=== PATIENT | male | born 1955 | race Caucasian/White ===

== ENCOUNTER 2022-02-16 19:28 | Inpatient (IN) | payer MEDICARE, OTHER ==
[~2022-02-16] VITALS: Ht 172.7 cm; Wt 137.9 kg
[2022-02-16 19:51] LABS: BASOPHILS ABSOLUTE AUTO 0.05 K/mm3 (0.00-0.23); BASOPHILS PERCENT AUTO 0 % (0-2); EOSINOPHILS PERCENT AUTO 2 % (0-6); Hematocrit 49.3 % (37.0-53.0); Hemoglobin 16.2 g/dL (13.5-17.5); IMMATURE GRAN ABSOLUTE AUTO 0.05 K/mm3 (0.00-0.10); IMMATURE GRAN PERCENT AUTO 0 % (0-1); LYMPHOCYTES ABSOLUTE AUTO 1.85 K/mm3 (0.84-5.20); LYMPHOCYTES PERCENT AUTO 14 % (21-46); MONOCYTES ABSOLUTE AUTO 1.14 K/mm3 (0.16-1.47); MONOCYTES PERCENT AUTO 9 % (4-13); Mean Corpuscular HGB 28.4 pg (26.0-34.0); Mean Corpuscular HGB Conc 32.9 g/dL (31.5-36.5); Mean Corpuscular Volume 87 fL (80-100); Mean Platelet Volume 11.2 fL (9.1-12.4); NEUTROPHILS ABSOLUTE AUTO 9.66 K/mm3 (1.96-9.15); NEUTROPHILS PERCENT AUTO 75 % (41-73); Platelet Count 245 K/mm3 (150-400); RDW Coefficient Variation 13.8 % (11.7-14.2); RDW Standard Deviation 43.5 fL (35.1-46.3); White Blood Cell Count 12.95 K/mm3 (4.00-11.30)
[2022-02-16 20:20] LABS: Creatinine (POC) 1.6 mg/dL (0.8-1.3)
[2022-02-16 20:20] LABS: Albumin, Blood 3.4 g/dL (3.4-5.0); Albumin/Globulin Ratio 0.9 (0.8-1.8); Bilirubin, Total 0.3 mg/dL (0.1-1.0); Bun/Creatinine Ratio 20.8 (12.0-20.0); Calcium, Blood 8.9 mg/dL (8.5-10.1); Creatinine, Blood 1.59 mg/dL (0.60-1.20); Globulin, Blood 3.6 g/dL (2.2-4.0); Potassium, Blood 4.1 mmol/L (3.5-5.5)
[2022-02-17 00:47] LABS: Anti-Xa UFH, PHA Monitoring <0.10 IU/mL; International Normalized Ratio 1.08; Prothrombin Time Results 11.3 Sec (9.7-11.5)
[2022-02-17 04:25] LABS: Hematocrit 47.8 % (37.0-53.0); Hemoglobin 15.4 g/dL (13.5-17.5); Mean Corpuscular HGB 28.5 pg (26.0-34.0); Mean Corpuscular HGB Conc 32.2 g/dL (31.5-36.5); Mean Corpuscular Volume 88 fL (80-100); Platelet Count 221 K/mm3 (150-400); RDW Coefficient Variation 13.9 % (11.7-14.2); RDW Standard Deviation 44.6 fL (35.1-46.3); Red Blood Cell Count 5.41 M/mm3 (4.30-5.90); White Blood Cell Count 11.13 K/mm3 (4.00-11.30)
[2022-02-17 05:03] LABS: Bun/Creatinine Ratio 20.5 (12.0-20.0); Calcium, Blood 8.5 mg/dL (8.5-10.1); Creatinine, Blood 1.51 mg/dL (0.60-1.20); Potassium, Blood 3.7 mmol/L (3.5-5.5); Thyroid Stimulating Hormone 2.25 uIU/mL (0.360-4.800)
--- NOTE | 2022-02-17 07:24 | NUR ---
US TECH AT BEDSIDE FOR RENAL W/ BLADDER
--- NOTE | 2022-02-17 07:36 | NUR ---
ASSUMED CARE: PT IS RESTING IN BED AT TIEM OF BEDSIDE REPORT, PT'S IN RECLINER FROM PREVIOUS NIGHT'S STAY. PT IS SATTING AT 97% O2 AT ROOM AIR, NORMAL SINUS RHYTHM W/ FREQUENT PVC'S AND RATE IN 80'S PER MONITOR, HEPARIN GTT RUNNING AT 15U/KG/HR. PT IS ABLE TP VERBALIZE NEEDS AND CALL LIGHT IS WITHIN REACH, NO ACUTE NEEDS/DISTRESS AT THIS TIME.
--- NOTE | 2022-02-17 08:45 | NUR ---
reviewed [employer]'s head to toe assessment and agree
--- NOTE | 2022-02-17 13:52 | NUR ---
PT CALLED STAFF TO BEDSIDE BECAUSE HE HAD A "SPLITTING" HEADACHE. CHECKED BP WITH RESULT 188/110. DISCUSSED OPTIONS WITH PRODUCT SAFETY ASSOCIATE AND REMOVED NITRO PASTE DUE TO NEEDING IT OFF FOR 24 HOURS FOR SECOND PORTION OF STRESS TEST ANYWAY. MEDICATED WITH IV LABETOLOL. PT USING HOT COMPRESS TO HEAD WELL. PT STATES HE IS ALREADY FEELING RELIEF.
--- NOTE | 2022-02-17 14:00 | NUR ---
NUCLEAR MEDICINE IN ROOM TO ADMINISTER INJECTION, PT CLEARED BY IMAGING TO EAT BEFORE SCAN, TRAY PROVIDED.
[2022-02-17 14:20] LABS: Anion Gap 7 mmol/L (6-16); Blood Urea Nitrogen 26 mg/dL (8-24); Bun/Creatinine Ratio 21.5 (12.0-20.0); CO2, Blood 25 mmol/L (21-32); Calcium, Blood 8.2 mg/dL (8.5-10.1); Chloride, Blood 107 mmol/L (98-108); Creatinine, Blood 1.21 mg/dL (0.60-1.20); Glomerular Filtration Rate >60 (60-); Glucose, Blood 104 mg/dL (70-99); Potassium, Blood 3.8 mmol/L (3.5-5.5); Sodium, Blood 139 mmol/L (136-145)
--- NOTE | 2022-02-17 15:09 | NUR ---
Patient is lying in bed and alert. Pt's spouse, Henny, is bedside. They tell me about the medical issues and the plan moving forward. They, then, talk about their family and about their strong Hinduism saman. They list their concerns and their trust in God at the same time. I reinforce their helpful attitudes and gratitude, and provide therapeutic listening, pastoral counselor nurses' association and prayer. They respond well and show signs of being encouraged in their saman. I will continue to remain available to patient and family.
--- NOTE | 2022-02-17 15:10 | NUR ---
PT TAKEN BY TRANSPORTER VIA WHEELCHAIR W/ IV POLE AND GTTS RUNNING TO IMAGING FOR NUCLEAR MEDICINE SCAN
--- NOTE | 2022-02-17 15:26 | NUR ---
PT BACK IN ROOM FROM IMAGING
--- NOTE | 2022-02-17 17:23 | NUR ---
SHIFT SUMMARY: PT IS A&OX4 W/ AT BEDSIDE. PT HAS BEEN PLEASANT AND COOPERATIVE W/ CARE THROUGHOUT SHIFT. PT'S BP'S REMAIN IN 160'S/110'S, O2 SAT 97% AT ROOM AIR, AND TELE MONITOR REPORTS NSR W/ FREQUENT PVC'S AT A RATE OF 70'S . PT HAS HAD US RENAL AT BEDSIDE AND NUCLEAR STRESS TEST TODAY, BOTH WERE TOLERATED WELL. PT IS ABLE TO AMBULATE W/ SBA. PT ONLY REPORTED A SEVERE HEADACHE AND WAS RESOLVED W/ DC OF NITRO PATCH AND PRN BP MED PER MAR BY NAVNEET Etienne. PT IS ALLOWED TO EAT TONIGHT PER NUCLEAR MEDICINE, BUT NO CAFFEINE AFTER 1999 TONIGHT FOR SECOND IMAGE STUDY TO BE PERFORMED TOMORROW. NO ACUTE NEEDS/DISTRESS AT THIS TIME.
--- NOTE | 2022-02-18 00:03 | NUR ---
pt bp elevated pt had elevated bp after giving prn labatolol. Call placed to MD Dalton. MD Dalton with orders for po norvasc, prn hydralazine, and increased labatolol dose, see emar. Medications given which resulted in continuing htn. Call placed to MD Lee. MD Lee with orders for increased hydralazine and labatolol along with morning oral medications, see emar. While orders were being put in, pt's bp resulted in 260/145. Call placed again to MD Lee, with orders for nitro paste. Applied per emar, awaiting bp results.
--- NOTE | 2022-02-18 05:03 | NUR ---
SHIFT SUMMARY PATIENT IS A&O X4. PATIENT IS INDEPENDENT WITH ADLS BUT REQUIRES ASSISTANCE WITH LINES. PATIENT DENIES CHEST PAIN. AFEBRILE. SBP 160-220S DURING SHIFT. MEDICATED PER EMAR FOR HTN. CURRENTLY BACK TO 160S SYSTOLIC. SR ON TELE WITH FREQUENT PVCS, HR IN THE 80S. PATIENT ON RA WITH O2 SATS >94%. HEPARIN GTT INCREASED TO 21 UNITS/KG/HR 40.7 MLS/HR INFUSING INTO THE RAC IV LINE. PATIENT HAS STRESS TEST SCHEDULED FOR THIS AM AND HAS HAD NO CAFFEINE DURING THIS SHIFT. PATIENT UNDERSTANDS HOW TO CALL STAFF FOR ASSISTANCE. CALL LIGHT IN REACH AND BED IN LOWEST POSITION. WILL CONTINUE TO MONITOR.
--- NOTE | 2022-02-18 05:24 | NUR ---
SHIFT SUMMARY PATIENT IS ALERT AND ORIENTED TO SELF/FAMILY/SITUATION/LOCATION BUT FREQUENTLY BECOMES CONFUSED AND FORGETS LIMITATIONS/CARE NEEDS AND ASKS TO GET OUT OF BED OR TO EAT/DRINK. PATIENT IS ABLE TO BE REDIRECTED AND IS CALM AND COOPERATIVE WITH CARE. AFEBRILE. PATIENT IS ON AIRVO 55L 38% O2, WITH SATS >92%. DESATS QUICKLY TO THE 80S WHEN LAYING FLAT OR IF O2 IS REMOVED. SBP 110-120S. AFIB ON TELE WITH HR IN THE 100S. RR 22-24. GENERAL DYSPNEA NOTED. YOSHI PICC LINE EXTERNAL LENGTH AT 15CM. TPN AND CARDIZEM @ 10 INFUSING INTO YOSHI PICC LINE. CLINT POWERGLIDE DRAWS AND FLUSHES WELL. DRESSINGS ON RT ARM AND COCCYX C/D/I. Q2HR TURNS AND ORAL CARE DONE. PATIENT TOLERATED WELL. MOUTH CONTINUES TO BLEED EASILY WITH ORAL CARE DUE TO SCABS/SORES. BUE EDEMATOUS AND WEEPING; CHANGED PADS UNDER ARMS 2X DURING SHIFT. DOSHI CATHETER IS INTACT AND DRAINING WELL TO GRAVITY. URINE IS NOTICIBLY DARKER AT THE END OF THE SHIFT. CALL LIGHT WITHIN REACH. HOB ELEVATED. BED IN LOWEST POSITION. FREQUENT CHECKS FOR SAFETY. WILL CONTINUE TO MONITOR.
[2022-02-18 05:51] LABS: Cholesterol 125 mg/dL (50-200); HDL Cholesterol 31 mg/dL (>39); LDL/HDL RATIO 2.4; Low Density Lipoprotein Chol 75 mg/dL (0-110); Triglycerides 95 mg/dL (30-160); Very Low Density Lipoprot Chol 19 mg/dL (6-32)
--- NOTE | 2022-02-18 07:38 | NUR ---
ASSUMED CARE: PT RESTING IN BED AT TIME OF BEDSIDE REPORT, IN RECLINER. PT SATTING AT 95% AT ROOM AIR, NSR W/ FREQUENT PVC'S PER MONITOR. HEPARIN GTT RUNNING AT 21MCG/KG/MIN PT STATES HE HAS A SLIGHT HEADACHE, BUT NO OTHER ACUTE NEEDS/DISTRESS AT THIS TIME. CALL LIGHT WITHIN REACH.
--- NOTE | 2022-02-18 10:12 | NUR ---
REVIEWED REGISTERED CLIENT ASSOCIATE'S HEAD TO TOE ASSESSMENT AND AGREE
--- NOTE | 2022-02-18 10:25 | NUR ---
CERTIFIED SCRUM MASTER AT BEDSIDE
--- NOTE | 2022-02-18 13:26 | NUR ---
Patient is lying in bed and alert. Pt's spouse, Henny is bedside. Pt is experiencing high blood pressure while we talk but engages well in the conversation and drives much of the conversation. 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 They also talk about the stress that this kind of ministry brings and how this may contribute to his health issues. We talk about personal issues and I provide pastoral certified alcohol counselor, companionship and prayer. Pt and Henny respond well and show signs of being encouraged in their saman. I will continue to remain available to patient and family.
--- NOTE | 2022-02-18 15:23 | NUR ---
[facility] CENTER AT BEDSIDE TO PERFORM STRESS TEST
--- NOTE | 2022-02-18 17:48 | NUR ---
SHIFT SUMMARY: PT IS A&OX4 AND CALLS APPROPRIATELY FOR NEEDS. PT HAS HAD AT BEDSIDE THROUGHOUT SHIFT. PT HAS SUSTAINED NSR W/ FREQUENT PVC'S, O2 >95% ON ROOM AIR, AND SBP OF 160'S. PT REQUIRED PRN DOSE OF LABETOLOL FOR SBP IN 190'S W/ APPROPRIATE RESPONSE AND DECREASE IN SBP BACK DOWN TO 150'S. STRESS TEST W/ NUC MED COMPLETED. HEP GTT RUNNING AT 21U/KG/HR. NO ACUTE NEEDS/DISTRESS AT THIS TIME.
[2022-02-19 03:31] LABS: Hemoglobin 14.5 g/dL (13.5-17.5); Mean Platelet Volume 11.3 fL (9.1-12.4); Platelet Count 203 K/mm3 (150-400)
--- NOTE | 2022-02-19 05:55 | NUR ---
SHIFT SUMMARY PT ALERT AND ORIENTED X4. HIGH BP TO START SHIFT, SYSTOLIC 170'S. RELIEVED WITH PRN LABETALOL, STABLE SINCE AT 140'S/70'S. ON RA SATS OVER 94%. AFEBRILE. SR W/ PVCS 70'S. INDEPENDENT FOR ADLS. CPAP ON AT NIGHT. HEP GTT INFUSING. IN BED SLEEPING WITH CALL ALARM AT SIDE, WILL CONTINUE TO MONITOR UNTIL REPORT GIVEN TO DAYSHIFT RN
--- NOTE | 2022-02-19 07:22 | NUR ---
ASSUMED CARE OF PATIENT AT 0700. PATIENT A&O X4. PATIENT WAS SITTING UP IN BED. DENIES CP OR CHEST DISCOMFORT. PATIENT BP 166/98, HR 74, RR 20 BREATH/MIN., O2 95% ON RA AND NO FEVER. MORNING SCHEDULE BP MEDS GIVEN. PATIENT REPORTED HE WAS GIVEN OF IV LABETALOL LAST NIGHT AND HE THINKS THAT WAS EFFECTIVE THAT BROUGHT HIS BP DOWN TO 140S/70S. PATIENT SPOUSE AT BEDSIDE. CALL LIGHT IN REACH, BED IN LOW POSITION. WILL CONTINUE TO MONITOR PATIENT THROUGHOUT SHIFT.
--- NOTE | 2022-02-19 08:00 | NUR ---
The patient and his confirm that he DOES NOT HAVE A SULFA ALLERGY.
--- NOTE | 2022-02-19 09:26 | NUR ---
THIS SN RECHECKED PATIENT VITALS AROUND 0905 BP 159/89 WITH HR OF 77 BPM. PATIENT WAS SITTING UP IN CHAIR AND AT BEDSIDE. DR ANDREWS WAS IN ROOM TALKING TO PATIENT AND SPOUSE PLAN TO DISCHARGE PATIENT SOMETIMES TODAY 02/19/22.
--- NOTE | 2022-02-19 09:31 | NUR ---
Dr. Arguello here rounding with medical student. and pt are both here talking with the doctor.
--- NOTE | 2022-02-19 09:45 | NUR ---
Be reports no chest pain, no dyspnea, no discomfort this morning. states that he slept well last night. Discussed home medications with Dr. Arguello; called and spoke with RN answering Dr. Torres's phone in the lab[address] as he is presently doing a procedure. Asked for a read on the resting portion of the stress test, per Dr. Arguello's request so that pt can be discharged home in a timely manner.
[2022-02-19] MEDS ORDERED: ASPI81CH PO (11:21)
[2022-02-19] MEDS ORDERED: AMLO10 PO (11:21)
[2022-02-19] MEDS ORDERED: LISI20 PO (11:24)
[2022-02-19] MEDS ORDERED: ATOR80 PO (11:24)
[2022-02-19] MEDS ORDERED: METO25 PO (11:25)
--- NOTE | 2022-02-19 15:33 | NUR ---
Dr. Arguello here, spoke with patient and his . Pt is okay to discharge at this time.
--- NOTE | 2022-02-19 15:57 | NUR ---
DISCHARGE SUMMARY PATIENT DISCHARGED HOME AT 1545. EDUCATED PATIENT WITH NEW BP MEDICATIONS SIDE EFFECTS AND THE COMPLIANCE OF THE MEDICATION REGIMEN. EMPHASIZED TO THE PATIENT TO CHECK BP AND PULSE AND MAKE A DAILY LOG FOR BP READING. MAKING SURE TO FOLLOW THE INDICATED PARAMETERS TO HOLD BP IF SBP LESS THAN 110 AND HR OF LESS THAN 60 BMP. PROVIDED WITH PRINTED INFORMATION REGARDING PATIENT NEW MEDICATION AND HTN CONDITION THAT HE CAN READ OR REFER TO AT HIS CONVENIENCE WHEN HE GETS HOME . PATIENT PRESCRIPTION WAS FAXED TO [facility], [place]. PATIENT REPORTS HE ALREADY MADE AN APPOINTMENT WITH HIS PCP THIS COMING WEDNESDAY. PATIENTS TOOK ALL HIS BELONGINGS. OFFERED WHEELCHAIR, BUT DECLINED; HE PREFERRED TO WALK. PATIENT WAS ACCOMPANIED BY SPOUSE. DISCONTINUED IV APPLIED 2X2 AND WRAPPED WITH COBAN.
== END 2022-02-19 15:48 | disposition home or self-care (01) | DRG 305 ==
LOC: ER 19:28 → PCU 19:29
PROVIDERS: Internal Medicine; Physician Assistant; Student in an Organized Health Care Education/Training Program; ADMIT Internal Medicine
DX: I16.0 Hypertensive urgency (principal); N17.9 Acute kidney failure, unspecified; Z68.42 Body mass index [BMI] 45.0-49.9, adult; R07.9 Chest pain, unspecified; G47.33 Obstructive sleep apnea (adult) (pediatric); E66.9 Obesity, unspecified; E88.81 Metabolic syndrome and other insulin resistance; Z90.49 Acquired absence of other specified parts of digestive tract; Z88.2 Allergy status to sulfonamides; Z98.890 Other specified postprocedural states; Z99.89 Dependence on other enabling machines and devices
CPT/HCPCS: 36415; 71045; 76770; 78452; 80048; 80053; 80061; 82565; 82947; 83036; 83880; 84443; 84484; 85014; 85018; 85025; 85027; 85049; 85520; 85610; 93005; 93010; 93017; 93306; 94660; 94762; 96374; 96375; 96376; 99285-25; A9270; A9500; G0378; J0280; J0360; J1644; J2785; J7030

== ENCOUNTER 2024-08-30 05:47 | Inpatient (IN) | payer MEDICARE, OTHER ==
[~2024-08-30] VITALS: Ht 172.7 cm; Wt 130.4 kg
[2024-08-30] VITALS (43 sets, daily range): BP systolic 163–245; BP diastolic 93–227
[~2024-08-30 05:47] MED LIST: AMLO10 PO; ASPI81CH PO; ATOR80 PO; LISI20 PO; METO25 PO
[2024-08-30 06:09] LABS: BASOPHILS ABSOLUTE AUTO 0.06 K/mm3 (0.00-0.23); BASOPHILS PERCENT AUTO 0 % (0-2); EOSINOPHILS ABSOLUTE AUTO 0.08 K/mm3 (0.00-0.68); EOSINOPHILS PERCENT AUTO 1 % (0-6); Hemoglobin 14.4 g/dL (13.5-17.5); IMMATURE GRAN ABSOLUTE AUTO 0.08 K/mm3 (0.00-0.10); IMMATURE GRAN PERCENT AUTO 1 % (0-1); LYMPHOCYTES ABSOLUTE AUTO 0.81 K/mm3 (0.84-5.20); LYMPHOCYTES PERCENT AUTO 5 % (21-46); MONOCYTES ABSOLUTE AUTO 1.06 K/mm3 (0.16-1.47); MONOCYTES PERCENT AUTO 6 % (4-13); Mean Corpuscular Volume 87 fL (80-100); Mean Platelet Volume 11.7 fL (9.1-12.4); NEUTROPHILS ABSOLUTE AUTO 14.98 K/mm3 (1.96-9.15); NEUTROPHILS PERCENT AUTO 88 % (41-73); Platelet Count 259 K/mm3 (150-400); RDW Coefficient Variation 14.5 % (11.7-14.2); RDW Standard Deviation 46.6 fL (35.1-46.3); Red Blood Cell Count 5.15 M/mm3 (4.30-5.90); White Blood Cell Count 17.07 K/mm3 (4.00-11.30)
[2024-08-30 06:14] LABS: Base Excess Venous -0.7 mmol/L; Bicarbonate Venous 23.6 mmol/L (24.0-30.0); PCO2 Venous 45.4 mmHg (38-42); pH Blood Venous 7.35 (7.34-7.37)
[2024-08-30 06:21] LABS: Albumin, Blood 3.4 g/dL (3.4-5.0); Albumin/Globulin Ratio 0.8 (0.8-1.8); Bilirubin, Total 0.6 mg/dL (0.1-1.0); Bun/Creatinine Ratio 16.8 (12.0-20.0); Calcium, Blood 9.1 mg/dL (8.5-10.1); Creatinine, Blood 1.97 mg/dL (0.60-1.20); Globulin, Blood 4.1 g/dL (2.2-4.0); Potassium, Blood 4.3 mmol/L (3.5-5.5); Total Protein, Blood 7.5 g/dL (6.4-8.2)
[2024-08-30] MEDS ORDERED: Ipratropium/Albuterol SulF 2.5-0.5MG/3 ML Amp INH ONE (06:25)
[2024-08-30] MEDS ORDERED: Furosemide 10 MG/ML 4ML Vial IV ONE (06:40)
[2024-08-30] MEDS ORDERED: Nitroglycerin/D5W 250 ML IV SCH (06:45)
[2024-08-30 07:02] LABS: Influenza A, PCR NEGATIVE (NEGATIVE); Influenza B, PCR NEGATIVE (NEGATIVE); Resp Syncytial Virus, PCR NEGATIVE (NEGATIVE); SARS-Cov-2 (COVID-19) PCR, MMC NEGATIVE (NEGATIVE)
[2024-08-30] MEDS ORDERED: Furosemide 10 MG/ML 4ML Vial IV SCH ×2 (09:00→12:00)
[2024-08-30] MEDS ORDERED: Acetaminophen 325 MG TABLET PO PRN (09:00)
[2024-08-30] MEDS ORDERED: FLU VACC TS2024-25(6MOS UP)/PF 45 MCG/0.5 ML SYRINGE IM SCH (09:00)
--- NOTE | 2024-08-30 14:16 | NUR ---
BLOOD PRESSURE: DISCUSSED PATIENT'S SBP AND CONTINUED USE OF NITROGLYCERIN GTT WITH DR. HANSEN DURING ROUNDING. PATIENT'S SBP HAS BEEN IN THE 190S- 210S SINCE ADMISSION FROM THE ER. NITRO GTT CONTINUES AT 200 MCG/MIN. PATIENT'S HEADACHE HAS IMPROVED TO PATIENT'S SATISFACTION. NO CHANGE TO ORDERS AT THIS TIME.
--- NOTE | 2024-08-30 14:43 | NUR ---
ASSUMED CARE PT BROUGHT IN VIA GRACIELA FROM ED WITH RN. ALERT AND ORIENTED, RESPONDING APPROPRIATLY. ON COPY CENTER SPECIALIST W/ HR IN THE 80-90'S. PT ON AIRVO, SATS IN THE 90'S. NITRO DRIP INFUSING AT 200 MCG/MIN TO L PIV. PUREWIK IN PLACE. DENIES PAIN. AT BEDSIDE.
--- NOTE | 2024-08-30 16:04 | NUR ---
The patient is lying in bed and alert. He tells me about his trip to [facility] and that he got sick while he was there and brought it back here and has had a rough time fighting it off. He is pleasant and mindful of others. 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 I normalized his experience, reinforced helpful attitudes and practices and provided therapeutic listening and prayer. Patient responded well and showed signs of an elevated mood and being encouraged in his saman.
[2024-08-30] MEDS ORDERED: Morphine Sulfate 4 MG/1 ML Injection IV PRN (17:35)
[2024-08-30] MEDS ORDERED: Ondansetron HCl 2 MG / ML 2ML Vial IV PRN (17:50)
--- NOTE | 2024-08-30 18:25 | NUR ---
SHIFT SUMMARY PT IS A&OX4, RESPONDING AND CALLING APPROPRIATLY. ON AIRVO 55L AND 55%, DENIES SOB. SATS IN THE 90'S. ON CONTINUOUS CARDIAC MONITORING, HR 90-100'S. SBP MAINTAINED 170-210'S T/O THIS SHIFT. ON NITRO DRIP AT 200 MCG/MIN INFUSING TO L PIV. DIURESING PT W/ LASIX, PUREWIK IN PLACE AND SET TO SUCTION. PT REPORTED NAUSEA AFTER PO INTAKE, MEDICATED PER EMAR W/ RELIEF. ALSO C/O NEW ONSET OF HEADACHE AND BODY ACHE, MEDICATED W/ TYLENOL WITH RELIEF. CALL LIGHT IN REACH, AT BEDSIDE.
--- NOTE | 2024-08-30 19:35 | NUR ---
ASSESSMENT/ASSUMED CARE PT SITTING UP IN BED TALKING WITH . DENIES PAIN OR DISCOMFORT AT THIS TIME. BP ELEVATED ON NTG AT 200 MCQ. WILL CALL HOSPITALIST REGARDING PO HTN MEDS. LUNGS CLEAR BUT DECREASED IN THE BASES ON AIRVO AT 55 LITERS 55%. PT STATES,"SOB IS IMPROVED AFTER THE LASIX". DENIES COUGH. HEART RATE ELEVATED IN THE 110'S. BT+ ABD ROUND AND FIRM. DENIES N/V. IV TO RIGHT HAND SALINE LOCKED. SITE CLEAR. IV LEFT AC WITH NTG INFUSING. MALE PUREWICK ON, DRAINING CLEAR YELLOW URINE.
[2024-08-30] MEDS ORDERED: AmLODIPine Besylate 5 MG Tab PO SCH (19:55)
--- NOTE | 2024-08-30 19:56 | NUR ---
CALL TO HOSPITALIST CALL TO [facility] REGARDING HTN BP 189/100 MAP 128 HEART RATE 110. PT ON NITRO AT 200 MCQ. RECEIVED ORDER FOR PO MEDS.
[2024-08-30] MEDS ORDERED: TraMADol HCl 50 MG Tab PO PRN (21:00)
[2024-08-30] MEDS ORDERED: Labetalol HCL 5 MG/ML 4ML Injection (Single Dose) IV PRN (21:50)
[2024-08-30] MEDS ORDERED: AmLODIPine Besylate 5 MG Tab PO ONE (21:50)
--- NOTE | 2024-08-30 21:50 | NUR ---
CALL TO HOSPITALIST CALL TO [facility] REGARDING CONT HTN 192/113 MAP 130 HEART RATE 110. SEE NEW ORDERS.
--- NOTE | 2024-08-30 22:16 | NUR ---
LABETALOL 10 MG GIVEN IV. PT WITH HOME CPAP ON WITH 8 LITERS O2
[2024-08-30] MEDS ORDERED: Metoprolol Tartrate 50 MG Tab PO SCH (23:00)
--- NOTE | 2024-08-30 23:00 | NUR ---
CALL FROM OBTAINED CALL FROM DR KEENE REGARDING BP. NEW ORDERS RECEIVED. GOAL FOR SBP TONIGHT IS BELOW 180.
[2024-08-31] VITALS (46 sets, daily range): BP systolic 114–202; BP diastolic 61–131
[2024-08-31] MEDS ORDERED: HydrALAZINE HCl 20 MG / ML 1ML Vial IV PRN
[2024-08-31 03:22] LABS: Hematocrit 37.1 % (37.0-53.0); Mean Corpuscular HGB Conc 32.3 g/dL (31.5-36.5); Mean Corpuscular Volume 87 fL (80-100); Mean Platelet Volume 11.3 fL (9.1-12.4); Platelet Count 230 K/mm3 (150-400); RDW Coefficient Variation 14.6 % (11.7-14.2); RDW Standard Deviation 46.3 fL (35.1-46.3); Red Blood Cell Count 4.28 M/mm3 (4.30-5.90)
[2024-08-31 03:39] LABS: Calcium, Blood 8.4 mg/dL (8.5-10.1); Creatinine, Blood 2.42 mg/dL (0.60-1.20); Magnesium, Blood 1.9 mg/dL (1.6-2.4); Phosphorus, Blood 5.5 mg/dL (2.5-4.9); Potassium, Blood 3.9 mmol/L (3.5-5.5)
--- NOTE | 2024-08-31 05:17 | NUR ---
HTN PT AWAKE. BP 187/131 HEART RATE 79. PT UP TO VOID, THAN BACK TO BED. MED WITH HYDRALAZINE
--- NOTE | 2024-08-31 06:00 | NUR ---
SHIFT SUMMARY PT RESTING QUIETLY. NTG TITRATED OFF DURING THE NIGHT. PT WAS STARTED ON MORVASC AND METOPROLOL. ALSO, GIVEN PRN DOSES OF HYDRALAZINE AND LABETALOL. GOAL WAS TO GET SBP BELOW 180. PT WAS MED WITH ULTRAM FOR A HEADACHE DURING THE NIGHT WITH GOOD RESULTS. NTG WAS TURNED OFF AT 0330. PT USING HOME CPAP WITH 8 LITERS O2 DURING THE NIHGT. PT TO HAVE ECHO THIS AM. REPORT TO ON COMING NURSE
[2024-08-31] MEDS ORDERED: N-Acetylcysteine 600 MG CAP PO SCH (08:00)
[2024-08-31 08:49] LABS: PCO2 Arterial 58.6 mmHg (35-45); PO2 Arterial 118 mmHg (80-100); pH Blood Arterial 7.31 (7.35-7.45)
[2024-08-31] MEDS ORDERED: Heparin Sodium,Porcine 5,000 UNIT/0.5 ML SDV SC SCH (09:00)
[2024-08-31] MEDS ORDERED: Enoxaparin 40 MG/0.4 ML SYR SC SCH (09:00)
--- NOTE | 2024-08-31 13:00 | NUR ---
SUMMARY PT A/OX4, DENIES PAIN OR SOB. TITRATED DOWN ON O2 STARTING THIS AM. OFF O2 AT 1200 TODAY AND SPO2 90-92% ON RA. HAD CT PE STUDY THIS AM THAT DR. HANSEN WENT OVER WITH PT AND . PT AND ARE ADAMANT ABOUT DISCHARGING TODAY. DR. HANSEN OK'D PT FOR DISCHARGE. DISCHARGE INSTRUCTIONS GONE OVER WITH PT AND . RX CALLED TO [facility].
[2024-08-31] MEDS ORDERED: NAC600 MG PO (13:04)
[2024-08-31] MEDS ORDERED: METO50 PO (13:04)
[2024-08-31] MEDS ORDERED: FURO40 PO (13:05)
== END 2024-08-31 13:20 | disposition home or self-care (01) | DRG 291 ==
LOC: ER 05:47 → ICUE 08:56
PROVIDERS: Emergency Medicine; Student in an Organized Health Care Education/Training Program; ADMIT Internal Medicine
PROC: 5A09357 Assistance with Respiratory Ventilation, Less than 24 Consecutive Hours, Continuous Positive Airway Pressure (ICD-10-PCS; principal; 2024-08-30)
PROC: 5A0935A Assistance with Respiratory Ventilation, Less than 24 Consecutive Hours, High Flow/Velocity Cannula (ICD-10-PCS; 2024-08-30)
PROC: 4A033R1 Measurement of Arterial Saturation, Peripheral, Percutaneous Approach (ICD-10-PCS; 2024-08-31)
DX: I13.0 Hypertensive heart and chronic kidney disease with heart failure and stage 1 through stage 4 chronic kidney disease, or unspecified chronic kidney disease (principal); I50.31 Acute diastolic (congestive) heart failure; J96.01 Acute respiratory failure with hypoxia; I16.1 Hypertensive emergency; N17.9 Acute kidney failure, unspecified; E66.2 Morbid (severe) obesity with alveolar hypoventilation; Z68.41 Body mass index [BMI] 40.0-44.9, adult; N18.30 Chronic kidney disease, stage 3 unspecified; Z87.19 Personal history of other diseases of the digestive system; J45.909 Unspecified asthma, uncomplicated; Z90.49 Acquired absence of other specified parts of digestive tract; Z98.890 Other specified postprocedural states
CPT/HCPCS: 0241U; 36415; 36600; 71045; 71260; 80048; 80053; 82803; 83735; 83880; 84100; 84145; 84484; 85025; 85027; 85379; 93005; 93010; 94762; 96365; 96375; 99285-25; A9270; C8929; J0360; J1644; J1940; J2405; Q9957; Q9967

== ENCOUNTER → 2025-07-18 | Outpatient (CLI) | payer MEDICARE ==
[~2025-07-18] MED LIST changes: +FURO40 PO; +METO50 PO; +NAC600 MG PO
[2025-07-18 13:30] LABS: Protein, Urine Quantitative 57.7 mg/dL (0.0-11.9)
[2025-07-18 14:53] LABS: Microalbumin, Urine Quant. 391.0 mg/L (0.000-20.000)
[2025-07-23 16:00] LABS: ALBUMIN %,URINE 68.3 %; ALPHA-1 %,URINE 3.9 %; ALPHA-2 %,URINE 5.0 %; BETA GLOBULIN %,URINE 9.4 %; GAMMA GLOBULIN %,URINE 13.4 %; HOURS COLLECTED 24 hr; PARAPROTEIN %,URINE 0.0 %; PARAPROTEIN EXCRETION/24 HOUR 0.0
== END ==
LOC: LAB FUT 07-16 14:05 → LAB 03:00 → LAB SHORT 03:00
PROVIDERS: Internal Medicine Nephrology
DX: N18.4 Chronic kidney disease, stage 4 (severe) (principal); D63.1 Anemia in chronic kidney disease; N25.81 Secondary hyperparathyroidism of renal origin; E55.9 Vitamin D deficiency, unspecified; E78.00 Pure hypercholesterolemia, unspecified; R76.9 Abnormal immunological finding in serum, unspecified; R94.5 Abnormal results of liver function studies; R94.6 Abnormal results of thyroid function studies; D51.8 Other vitamin B12 deficiency anemias; D50.9 Iron deficiency anemia, unspecified
CPT/HCPCS: 81050; 82043; 82570; 84156; 84166; 86335

== ENCOUNTER 2025-09-27 21:15 | Emergency (ER) | payer MEDICARE, OTHER ==
[~2025-09-27] VITALS: Ht 172.7 cm; Wt 124.7 kg
[2025-09-27 21:31] VITALS: BP 177/107
[2025-09-27 22:07] LABS: BASOPHILS ABSOLUTE AUTO 0.05 K/mm3 (0.00-0.23); BASOPHILS PERCENT AUTO 0 % (0-2); EOSINOPHILS ABSOLUTE AUTO 0.25 K/mm3 (0.00-0.68); EOSINOPHILS PERCENT AUTO 2 % (0-6); Hematocrit 43.2 % (37.0-53.0); Hemoglobin 14.1 g/dL (13.5-17.5); IMMATURE GRAN ABSOLUTE AUTO 0.06 K/mm3 (0.00-0.10); IMMATURE GRAN PERCENT AUTO 1 % (0-1); LYMPHOCYTES ABSOLUTE AUTO 1.25 K/mm3 (0.84-5.20); LYMPHOCYTES PERCENT AUTO 10 % (21-46); MONOCYTES ABSOLUTE AUTO 1.29 K/mm3 (0.16-1.47); MONOCYTES PERCENT AUTO 11 % (4-13); Mean Corpuscular HGB Conc 32.6 g/dL (31.5-36.5); Mean Corpuscular Volume 90 fL (80-100); NEUTROPHILS ABSOLUTE AUTO 9.41 K/mm3 (1.96-9.15); NEUTROPHILS PERCENT AUTO 76 % (41-73); NRBC ABSOLUTE 0.00 K/mm3 (0.00-0.02); NRBC Auto 0.0 /100 WBC (0.0-0.2); Platelet Count 178 K/mm3 (150-400); RDW Coefficient Variation 13.7 % (11.7-14.2); RDW Standard Deviation 45.1 fL (35.1-46.3)
[2025-09-27 22:26] LABS: Source, Urine Clean Catch
[2025-09-27 22:30] LABS: Alanine Aminotransfer (ALT/SGP 38.0 U/L (12-78); Albumin, Blood 3.3 g/dL (3.4-5.0); Albumin/Globulin Ratio 0.8 (0.8-1.8); Anion Gap 6.0 mmol/L (3-11); Aspartate Aminotrans (AST/SGOT 20.0 U/L (12-37); Bilirubin, Total 0.3 mg/dL (0.1-1.0); Blood Urea Nitrogen 48.0 mg/dL (8-24); CO2, Blood 24.0 mmol/L (21-32); Calcium, Blood 8.7 mg/dL (8.5-10.1); Chloride, Blood 112.0 mmol/L (98-108); Creatinine, Blood 2.14 mg/dL (0.60-1.20); Globulin, Blood 3.9 g/dL (2.2-4.0); Glucose, Blood 137.0 mg/dL (70-99); Potassium, Blood 4.4 mmol/L (3.5-5.5); Sodium, Blood 138.0 mmol/L (136-145); Total Protein, Blood 7.2 g/dL (6.4-8.2)
[2025-09-27 23:00] LABS: Bilirubin, Urine Neg (Neg); Glucose Qualitative, Urine Neg (Neg); Ketones, Urine Neg (Neg); Leukocyte Esterase, Urine Neg (Neg); Protein, Urine 3+ (Neg); Specific Gravity, Urine 1.015 (1.003-1.022); Urobilinogen, Urine NORM (Normal)
[2025-09-27] MEDS ORDERED: Ondansetron HCl 2 MG / ML 2ML Vial IV ONE (23:15)
[2025-09-27 23:23] LABS: Color, Urine Yellow (P-Yellow)
[2025-09-27 23:24] LABS: Red Blood Cells, Urine 0-2 /hpf (0-2); White Blood Cells, Urine 0-2 /hpf (0-5)
[2025-09-27] MEDS ORDERED: RX Prepack 6 Tabs Oxycodone 5mg UD ONE (23:30)
[2025-09-27] MEDS ORDERED: Roxicodone5 MG PO (23:32)
[2025-09-27] MEDS ORDERED: AMOCLA875 PO (23:32)
== END 2025-09-27 23:47 | disposition home or self-care (01) ==
LOC: ER 21:15
PROVIDERS: Student in an Organized Health Care Education/Training Program
DX: K57.32 Diverticulitis of large intestine without perforation or abscess without bleeding (principal); I10 Essential (primary) hypertension; G47.33 Obstructive sleep apnea (adult) (pediatric)
CPT/HCPCS: 74177; 80053; 81001; 83690; 85025; 93005; 93010; 96374-59; 99284-25; A9270; J2405; Q9967